=== PATIENT | female | born 1940 | race Caucasian/White ===

== ENCOUNTER 2017-10-30 18:56 | Inpatient (IN) | payer BC, MEDICAID ==
[2017-10-30] MEDS ORDERED: METHYLPREDNISOLONE PF 125MG/VIAL IVP ONE (21:30)
[2017-10-30] MEDS: HYDROCODONE/APAP 10/325 TABLET PO PRN (21:33)
[2017-10-30 21:50] LABS: HEMATOCRIT 30.9 % (35.0-47.0); HEMOGLOBIN 9.5 gm/dl (11.6-16.0); MEAN CORPUSCULAR HEMOGLOBIN 27.3 pg (27-33); MEAN CORPUSCULAR HGB CONC 30.7 g/dl (32-36); MEAN PLATELET VOLUME 10.6 fl (7.4-10.4); PLATELET COUNT 256 K/uL (130-400); RED BLOOD COUNT 3.47 M/uL (3.80-5.40); RED CELL DISTRIBUTION WIDTH 13.5 % (11.5-14.5); WHITE BLOOD COUNT W/O DIFF 6.6 K/uL (4.2-12.2)
[2017-10-30 22:05] LABS: BILIRUBIN,TOTAL 0.2 mg/dL (0.2-1.0)
[2017-10-30 22:10] LABS: ALBUMIN 3.5 g/dL (4.0-5.0)
[2017-10-30] MEDS: CEFTRIAXONE 1GM/50ML BAG 1 GM/50 ML BAG IVPB SCH (22:23)
[2017-10-30] MEDS ORDERED: AZITHROMYCIN 500 MG in 0.9 % SODIUM CHLORIDE 250ML 250 ML IVPB SCH (23:00)
[2017-10-30] MEDS ORDERED: ALBUTEROL SULFATE (0.083%) 2.5 MG/3 ML NEB INH PRN (23:14)
[2017-10-30] MEDS ORDERED: IPRATROPIUM/ALBUTEROL (0.5MG/3MG) NEB INH PRN (23:14)
[2017-10-30] MEDS ORDERED: 0.9 % SODIUM CHLORIDE 1000ML 1,000 ML IV PRN (23:14)
[2017-10-30 23:15] LABS: ANISOCYTOSIS 1+; PLATELET ESTIMATE NORMAL (NORMAL)
[2017-10-30] MEDS: GUAIFENESIN 600 MG TABCR PO SCH (23:57)
[2017-10-30] MEDS: GABAPENTIN 100 MG CAPSULE PO SCH (23:58)
[2017-10-30] MEDS: ATORVASTATIN 20 MG TABLET PO SCH (23:58)
[2017-10-30] MEDS: CLONAZEPAM 1MG TABLET PO SCH (23:58)
[2017-10-30] MEDS: CELECOXIB 100 MG CAPSULE PO SCH (23:59)
[2017-10-30] MEDS: IPRATROPIUM/ALBUTEROL (0.5MG/3MG) NEB INH PRN (23:59)
[2017-10-30] MEDS: ASPIRIN 81 MG TABEC PO SCH (23:59)
[2017-10-31] MEDS: BENZONATATE 100 MG CAPSULE PO PRN ×2 (00:28→21:43)
[2017-10-31] MEDS: HYDROCODONE/APAP 10/325 TABLET PO PRN ×5 (04:17→21:44)
[2017-10-31] MEDS: PANTOPRAZOLE SODIUM 40 MG TABLET PO SCH ×2 (06:49→17:00)
--- NOTE | 2017-10-31 07:18 | RADIOLOGY REPORT ---
EXAM: CHEST, TWO VIEWS HISTORY: COUGH FOR A FEW DAYS. TECHNIQUE: Upright PA and lateral views of the chest were obtained. Comparison: None. FINDINGS: The heart projects mildly enlarged with a left ventricular configuration. No pulmonary venous hypertension is seen. The thoracic aorta is tortuous and atherosclerotic. A moderate sized hiatal hernia is present. Mild mixed opacities are suggested within the right lung base consistent with atelectasis or mild infiltrate. Mild underlying chronic interstitial change would be difficult to exclude. The lungs and pleural spaces are otherwise clear. There are degenerative changes scattered throughout the visualized spine. Moderate dextroconvex scoliosis is present centered at the thoracolumbar junction. There are mild degenerative changes of each hip. IMPRESSION: 1. MILD CARDIOMEGALY WITHOUT PULMONARY VENOUS HYPERTENSION. 2. PATCHY MIXED OPACITIES IN THE RIGHT LUNG BASE CONSISTENT WITH ATELECTASIS OR INFILTRATE. A COMPONENT OF CHRONIC INTERSTITIAL CHANGE WOULD BE DIFFICULT TO EXCLUDE. 3. MODERATE SIZED HIATAL HERNIA. JOB NUMBER: [id number] MTDD
[2017-10-31 07:40] LABS: ALBUMIN 3.3 g/dL (4.0-5.0); ALKALINE PHOSPHATASE 95 U/L (35-104); ALT/SGPT 13 U/L (<33); AST/SGOT 18 U/L (10.0-35.0); BILIRUBIN,TOTAL < 0.20 mg/dL (0.2-1.0); BLOOD UREA NITROGEN 21 mg/dL (8-23); CREATININE 0.6 mg/dL (0.5-0.9); EST GLOMERULAR FILTRATION RATE > 60 mL/min; GLUCOSE,RANDOM 170 mg/dL (74-109); TOTAL PROTEIN 6.7 g/dL (6.6-8.7)
[2017-10-31] MEDS: ENOXAPARIN 40 MG/0.4 ML SYR SC SCH (09:20)
--- NOTE | 2017-10-31 10:25 | Rehab Evaluation ---
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 PMH - Respiratory Hx Respiratory Disorders No Comment: allergies PMH - Cardiovascular Hx Hypertension Yes Comment: lower extremity edema PMH - Neuro Hx Neurological Disorders Yes Comment: has a recurring tic PMH - GI Hx Gastrointestinal Disorders Yes Hx Gastroesophageal Reflux Yes Hx Weight Loss/Weight Gain Yes: 5 pounds recently PMH - Patient No Comment: urge incontinence especially after Bumex taken PMH - Endocrine Hx Endocrine Disorders No PMH - Psych Hx Anxiety Yes Hx Depression Yes PMH - Hematology/Oncology Hx Anemia Yes: current hgb 9.5/hct 30.9; takes Iron Social History: Detail (The patient lives in alone in apartment complex on the first level. The patient's bathroom has a tub/shower combination with a seat and hand held shower head with a grab bar over/around the toilet. The toilet is a standard height, and that patient states that it is too low. She uses a 4WW for all mobility tasks. She reports since she has been home she has had difficulty with housework and other ADL activities due to weakness) Precautions: Newman (Droplet Precautions), Fall - Time With Patient Total Time Spent With Patient (Min): 30 Treatment Procedures: Detail (PT Initial Evaluation) Subjective Information - Subjective Information Per Patient (The patient reports that since she has been home she has had difficulty with all ADL tasks and feels the weakness in her legs is the cause of it. She reports that she has tried to stay up on her HEP from her total knee replacements, but has been difficult since she has not been feeling well.) Objective Data - Pain Pain Present: No Pain Intensity: 0 - Mental Status Patient Orientation: Oriented x3 - ROM Within normal limits (The patient had no ROM limitations throughout B LEs) - Strength/Tone Not within normal limits (The patient exhibited 3+/5 strength throughout the hips, knees, and ankles in B LEs. The patient said subjective reports of weakness, as well.) - Bed Mobility Independent (The patient was able to transfer from sit to supine independently. She was independent with scooting to the middle of the bed.) - Transfers Independent (The patient was independent with sit to stand, and was independent with transferring to and from the toilet.) - Balance Balance Sitting: Good (No LOB with strength testing while sitting at the bedside.) Balance Standing: Good (No LOB with immediate standing at the bedside. No LOB with gait activities in her room.) - Sensation Intact - Gait Detail (The patient uses a 4WW for ambulation. The patient has a history of scoliosis, so the patient has an increased forward lean with gait activities. She required supervision only when ambulating from her bedside to the doorway and back (about 20 feet total). She had no LOB with short distances. Due to weakness, the patient may have increased difficulty with ambulating longer distances.) Therapy Assessment - Therapy Assessment Detail (The patient was independent with bed mobility and transfers, including transfers to and from the toilet. The patient has marked strength limitations in both LEs, which may factor into difficulty with longer ambulation tasks. She would benefit from continued therapy to address strength and endurance deficits , which are factoring into her reported limitations with ADLs. Ongoing PT after discharge from [facility] is also recommended.) Problem List - Problem List Physical Therapy Problem List: Detail (1) Decreased LE strength bilaterally 2) Decreased ability for ADL tasks 3) Unable to ambulate longer household distances ) Goals - Goals Physical Therapy Goals: 1) The patient will be able to ambulate longer household distances for increased participation in ADL activities. 2) The patient will increase LE strength to be able to ambulate longer household distances. Prognosis - Prognosis Good Plan - Plan Physical Therapy Plan: The patient will be seen 1-2x/day M-F for gait activities and LE strengthening activities. She would benefit from continued therapy to address functional mobility deficits and LE strengthening activities.
[2017-10-31] MEDS: BUMETANIDE 1 MG TABLET PO SCH (10:37)
[2017-10-31] MEDS: CELECOXIB 100 MG CAPSULE PO SCH ×2 (10:38→21:42)
[2017-10-31] MEDS: LORATADINE 10 MG TABLET PO SCH (10:39)
[2017-10-31] MEDS: DULOXETINE HCL 30 MG CAPSULE.DR PO SCH (10:39)
[2017-10-31] MEDS: POTASSIUM CHLORIDE 10 MEQ TAB PO SCH (10:40)
[2017-10-31] MEDS: FERROUS SULFATE 325 MG TAB PO SCH ×2 (10:40→21:42)
[2017-10-31] MEDS: MAGNESIUM OXIDE 400 MG TABLET PO SCH (10:41)
[2017-10-31] MEDS: FOLIC ACID 1 MG TABLET PO SCH (10:41)
[2017-10-31] MEDS: GUAIFENESIN 600 MG TABCR PO SCH ×2 (10:41→21:48)
[2017-10-31] MEDS: GABAPENTIN 100 MG CAPSULE PO SCH ×3 (10:42→21:40)
[2017-10-31] MEDS: ASCORBIC ACID 500 MG TAB PO SCH (10:42)
[2017-10-31] MEDS: LISINOPRIL 10 MG TABLET PO SCH (10:43)
[2017-10-31] MEDS: METHYLPREDNISOLONE PF 125MG/VIAL IVP SCH (10:44)
[2017-10-31] MEDS: CEFTRIAXONE 1GM/50ML BAG 1 GM/50 ML BAG IVPB SCH ×2 (10:47→21:39)
--- NOTE | 2017-10-31 12:10 | History & Physical ---
History of Present Illness - Date of Service Date of Service for History & Physical: 10/31/17 - History of Present Illness Admitting Diagnosis: Pneumonia; generalized weakness History of Present Illness: 77yo female with CC of cough and weakness. She has history of HTN, GERD, depression, chronic anemia, allergies. Patient presented to the [facility] last evening with complaints of Cough with brown phlegm, diarrhea, fatigue, lightheaded, vomiting, and fever since last friday ( 10 days). Diarrhea began yesterday, vomited x 2 days, last vomited yesterday. Is tolerating water and trying to drink as much as she can. Decreased appetite, deep cough, short of breath Chest XR showed mild cardiomegaly and right lower base opacity consistent with mild infiltrate. Ortho BP laying 132/82 P 86 standing 143/87 P 98. He oxygen saturation was 97% on room air but was very wheezy on exam. Improved with duoneb breathing treatment. Due to her severe weakness and unsteadiness she was admitted for IV abx, PT/OT consult. 10/31/17- Patient is somewhat improved today. She says the nausea/vomiting have resolved and she is tolerating food for the first time in a few days. She is no longer having diarrhea. She does continue to report shortness of breath, wheezing, cough and weakness. She has been at least a 1x person assist to ambulate to the bathroom and patient reports feeling unsteady on her feet. She lives alone in an apartment and currently does not have family available to help her at home. Travel Screening - Travel/Exposure Within Last 30 Days Have you traveled within the last 30 days?: No - Travel/Exposure Within Last Year Have you traveled outside the [place] in the last year?: No - Additonal Travel Details Have you been exposed to anyone with a communicable illness?: No - Travel Symptoms Symptom Screening: Weakness, Diarrhea, Vomiting, Lack of Appetite Review of Systems Constitutional: Reports: Weakness (generalized). Denies: Chills, Fever ENT: Denies: Congestion Respiratory: Reports: Cough, Dyspnea, Wheezes. Denies: Stridor Cardiovascular: Denies: Arrhythmia, Chest pain Endocrine: Reports: Fatigue Gastrointestinal: Denies: Abdominal pain, Diarrhea, Nausea, Vomiting Neurological: Denies: Confusion, Headache Past Medical History - SOCIAL HISTORY Smoking Status: Never smoker Alcohol Use: None Drug Use: None - RESPIRATORY Hx Respiratory Disorders: No Comment:: allergies - CARDIOVASCULAR Hx Hypertension: Yes Comment:: lower extremity edema - NEURO Hx Neuro Disorders: Yes Comment:: has a recurring tic - GI Hx GI Disorders: Yes Hx Reflux: Yes Hx Wt Loss/Wt Gain: Yes (5 pounds recently) - Comment:: urge incontinence especially after Bumex taken - ENDOCRINE Hx Endocrine Disorders: No - PSYCH Hx Anxiety: Yes Hx Depression: Yes - HEMATOLOGY/ONCOLOGY Hx Anemia: Yes (current hgb 9.5/hct 30.9; takes Iron) Family Medical History Any Significant Family History?: No H&P Meds/Allergies - Allergies Allergies: Allergies Allergy/AdvReac Type Severity Reaction Status Date / Time No Known Drug Allergies Allergy Unverified 10/30/17 18:29 - Home Medications Home Medications Medication Instructions Recorded Confirmed Last Taken Potassium Chloride [Klor-Con 10] 10 meq PO DAILY 10/30/17 10/30/17 10/30/17 08: 00 - Active Medications Active Medications: Current Medications Hydrocodone Bitart/Acetaminophen ([place] 10mg/325mg) 1 each PO Q4H PRN PRN Reason: Pain - General Last Admin: 10/31/17 08:24 Dose: 1 each Albuterol Sulfate () 2.5 mg INH RESP.Q2H PRN PRN Reason: DIFFICULTY IN BREATHING Albuterol/Ipratropium (Duoneb) 3 ml INH RESP.Q4H PRN PRN Reason: Wheezing Last Admin: 10/30/17 23:59 Dose: 3 ml Ascorbic Acid (Vitamin C) 1,000 mg PO DAILY COUNTS INCLUDE 234 BEDS AT THE [facility] Last Admin: 10/31/17 10:42 Dose: 1,000 mg Aspirin (Ecotrin (Ec)) 81 mg PO QHS COUNTS INCLUDE 234 BEDS AT THE [facility] Last Admin: 10/30/17 23:59 Dose: 81 mg Atorvastatin Calcium (Lipitor) 10 mg PO QHS COUNTS INCLUDE 234 BEDS AT THE [facility] Last Admin: 10/30/17 23:58 Dose: 10 mg Benzonatate (Tessalon) 200 mg PO TID PRN PRN Reason: COUGH Last Admin: 10/31/17 00:28 Dose: 200 mg Bumetanide (Bumex) 1 mg PO DAILY COUNTS INCLUDE 234 BEDS AT THE [facility] Last Admin: 10/31/17 10:37 Dose: 1 mg Celecoxib (Celebrex) 200 mg PO BID COUNTS INCLUDE 234 BEDS AT THE [facility] Last Admin: 10/31/17 10:38 Dose: 200 mg Clonazepam (Klonopin) 2 mg PO QHS COUNTS INCLUDE 234 BEDS AT THE [facility] Last Admin: 10/30/17 23:58 Dose: 2 mg Duloxetine HCl (Cymbalta) 60 mg PO DAILY COUNTS INCLUDE 234 BEDS AT THE [facility] Last Admin: 10/31/17 10:39 Dose: 60 mg Enoxaparin Sodium (Lovenox) 40 mg SC DAILY COUNTS INCLUDE 234 BEDS AT THE [facility] Last Admin: 10/31/17 09:20 Dose: 40 mg Ferrous Sulfate (Iron) 325 mg PO BID COUNTS INCLUDE 234 BEDS AT THE [facility] Last Admin: 10/31/17 10:40 Dose: 325 mg Folic Acid () 1 mg PO DAILY COUNTS INCLUDE 234 BEDS AT THE [facility] Last Admin: 10/31/17 10:41 Dose: 1 mg Gabapentin (Neurontin) 400 mg PO TID COUNTS INCLUDE 234 BEDS AT THE [facility] Last Admin: 10/31/17 10:42 Dose: 400 mg Guaifenesin (Mucinex) 600 mg PO BID COUNTS INCLUDE 234 BEDS AT THE [facility] Last Admin: 10/31/17 10:41 Dose: 600 mg Azithromycin 500 mg/ Sodium (Chloride) 250 mls @ 250 mls/hr IVPB Q24H COUNTS INCLUDE 234 BEDS AT THE [facility] Stop: 11/04/17 23:01 Last Infusion: 10/31/17 00:10 Dose: Infused CEFTRIAXONE 1GM/50ML BAG (Ceftriaxone 1 Gm-D5w Bag) 1 gm in 50 mls @ 100 mls/ hr IVPB Q12H COUNTS INCLUDE 234 BEDS AT THE [facility] Last Admin: 10/31/17 10:47 Dose: 100 mls/hr Lisinopril (Zestril) 10 mg PO DAILY COUNTS INCLUDE 234 BEDS AT THE [facility] Last Admin: 10/31/17 10:43 Dose: 10 mg Loratadine (Claritin) 10 mg PO DAILY COUNTS INCLUDE 234 BEDS AT THE [facility] Last Admin: 10/31/17 10:39 Dose: 10 mg Magnesium Oxide (Mag Ox) 400 mg PO DAILY COUNTS INCLUDE 234 BEDS AT THE [facility] Last Admin: 10/31/17 10:41 Dose: 400 mg Methylprednisolone Sodium Succinate (Solu-Medrol) 60 mg IVP DAILY COUNTS INCLUDE 234 BEDS AT THE [facility] Last Admin: 10/31/17 10:44 Dose: 60 mg Pantoprazole Sodium (Protonix) 40 mg PO BIDAC COUNTS INCLUDE 234 BEDS AT THE [facility] Last Admin: 10/31/17 06:49 Dose: 40 mg Potassium Chloride (Klor-Con) 10 meq PO DAILY COUNTS INCLUDE 234 BEDS AT THE [facility] Last Admin: 10/31/17 10:40 Dose: 10 meq Physical Exam - Vital Signs Vital Signs: Vital Signs - Last 24 Hrs Temp Pulse Pulse Resp BP BP Pulse Ox 10/31/17 10:39 68 20 99 10/31/17 04:20 97.5 F L 62 16 100/46 93 L 10/30/17 23:59 80 18 95 10/30/17 20:45 98.0 F 89 18 136/81 95 - General General Appearance: Alert, Oriented x3, Cooperative, No acute distress Limitations: Other (motor tics) - Head Head exam: Normal inspection Head exam detail: negative: Abrasion, Contusion - ENT ENT exam: Normal exam, Mucous membranes moist, Normal external ear exam, Normal orophraynx, TM's normal bilaterally, Other (poor dentition) - Neck Neck exam: Normal inspection, Full ROM. negative: Tenderness - Respiratory Respiratory exam: Prolonged expiratory, Wheezes (diffuse). negative: Respiratory distress - Cardiovascular Cardiovascular Exam: Regular rate, Normal rhythm, Normal heart sounds - GI/Abdominal GI/Abdominal exam: Soft, Normal bowel sounds. negative: Tenderness - Neurological Neurological exam: Alert, Normal gait, Oriented X3, Reflexes normal - Psychiatric Psychiatric exam: Normal affect, Normal mood - Skin Skin exam: Dry, Intact, Normal color, Warm Results - Labs Result Diagrams: 10/30/17 21:40 10/31/17 06:07 Labs Last 24 Hours: Laboratory Results - last 24 hr 10/30/17 10/30/17 10/31/17 21:40 21:40 06:07 WBC 6.6 RBC 3.47 L Hgb 9.5 L Hct 30.9 L MCV 89.0 MCH 27.3 MCHC 30.7 L RDW 13.5 Plt Count 256 MPV 10.6 H Neutrophils % 72.0 Eosinophils % Not Reportable Basophils % Not Reportable Lymphocytes 17.0 Monocytes 9.0 Platelet Estimate Normal Anisocytosis 1+ Eosinophil Count 2.0 Sodium 133 L 138 Potassium 4.4 4.5 Chloride 93 L 100 Carbon Dioxide 27.0 27.0 Anion Gap 13.0 11.0 BUN 24 H 21 Creatinine 1.0 H 0.6 Estimated GFR 57 > 60 Random Glucose 170 H 170 H Calcium 9.3 9.2 Total Bilirubin 0.20 < 0.20 L AST 20 18 ALT 13 13 Alkaline Phosphatase 105 H 95 Total Protein 7.0 6.7 Albumin 3.5 L 3.3 L Globulin 3.5 3.4 Albumin/Globulin Ratio 1.0 L 1.0 L - Imaging and Cardiology Chest x-ray Status: Report reviewed (right lower opacity ) VTE H&P Assessment - Risk for VTE Risk for VTE: Yes Risk Level: High Risk Assessment Date: 10/31/17 Risk Assessment Time: 16:25 VTE Orders Placed or Will Be Placed: Yes Plan - Inpatient Certification Inpatient Certification: Admit to inpatient care: Based on my medical assessment, after consideration of patient's risk factors (age, co-morbidities and patient presenting symptoms and acuity), I expect that this patient will remain in the hospital greater than or equal to two midnights and that the services needed warrant inpatient care because: Patient Risk Factors: [age, pneumonia, weakness, difficulty ambulating] Estimated length of stay: [48-72H] The patient may reasonably be expected to be discharged or transferred to a hospital within 96 hours after admission to [facility]. Services needed: [IV abx, respiratory therapy, PT/OT, SW] Post hospital care (if known): [] I certify that my determination is in accordance with my understanding of Medicare requirements for reasonable and necessary inpatient services. 10/31/17 12:08 - Detailed Diagnosis and Plan (1) Right lower lobe pneumonia Current Visit: Yes Status: Acute Qualifiers: Pneumonia type: due to unspecified organism Qualified Code(s): J18.1 - Lobar pneumonia, unspecified organism Base Code: J18.1 - LOBAR PNEUMONIA, UNSPECIFIED ORGANISM Comment: 10/31/17- CXR showing opacity in the right lower base. Blood, sputum cultures pending. Legionella antigen pending. WBC count wnl and patient is afebrile. -continue empiric treatment for CAP with rocephin 1gm q12H and azithromycin 500mg po daily -duoneb q4H prn with albuterol q2H prn BARBARA -received 125mg of solumedrol yesterday. will continue 60mg IV daily with persistent wheezing -mucinex 600mg po bid -vitals q8H -labs qam (2) Generalized weakness Current Visit: Yes Status: Acute Base Code: R53.1 - WEAKNESS Comment: 10/31- seems to be acute on chronic weakness, likely exacerbated by pneumonia. Still 1 person assist for ambulation. she is very high fall risk. -PT/OT consult ordered -JERE has seen patient and will plan to place home health referral vs JAMIE referral based on therapy's recommendations. (3) Full code status Current Visit: Yes Status: Acute Base Code: Z78.9 - OTHER SPECIFIED HEALTH STATUS Comment: 10/31/17- patient is full code (4) DVT prophylaxis Current Visit: Yes Status: Acute Base Code: [id number] - Comment: 10/2017- patient is high risk for dVT with age and restricted mobility -lovenox 40mg sq daily - Disposition 10/31/17- anticipate 48-72H inpatient stay followed by either discharge to subacute rehab vs home health therapy
[2017-10-31] MEDS: IPRATROPIUM/ALBUTEROL (0.5MG/3MG) NEB INH PRN ×2 (12:54→19:51)
--- NOTE | 2017-10-31 17:07 | Rehab Evaluation ---
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 PMH - Respiratory Hx Respiratory Disorders No Comment: allergies PMH - Cardiovascular Hx Hypertension Yes Comment: lower extremity edema PMH - Neuro Hx Neurological Disorders Yes Comment: has a recurring tic PMH - GI Hx Gastrointestinal Disorders Yes Hx Gastroesophageal Reflux Yes Hx Weight Loss/Weight Gain Yes: 5 pounds recently PMH - Patient No Comment: urge incontinence especially after Bumex taken PMH - Endocrine Hx Endocrine Disorders No PMH - Psych Hx Anxiety Yes Hx Depression Yes PMH - Hematology/Oncology Hx Anemia Yes: current hgb 9.5/hct 30.9; takes Iron Premorbid Status: Detail (Per pt. report, pt. had Dl. TKA sx (1 in Feb, 1 in Apr) and went to [facility] ([place]), but was unable to stay as long as she needed to recover d/t insurance coverage. Pt. feels as though she never fully recovered from this. Approx. 2-3 weeks ago, pt. became ill and was having significant difficulty with ADL's, which became worse and she sought medical attn. Prior to knee sx, Pt. was able to complete all self-care (i.e. bathing, dressing, cooking , cleaning) independently with the exception that her daughter brings her groceries 1x/week since pt. cannot drive. After her sx, pt.'s daughter also assisted with cleaning. Please see ADL section for current status. Pt. reported hx of biceps and rotator cuff tear in LUE "years ago", and has had pain ever since but did not have any therapy or treatment. Also reported hx of RUE shoulder or humerus injury (but couldn't recall what the injury was), with residual pain ever since.) Social History: Detail (The patient lives in alone in apartment complex on the first level. The patient's bathroom has a tub/shower combination with a seat and hand held shower head with a grab bar over/around the toilet. The toilet is a standard height, and that patient states that it is too low. She uses a 4WW for all mobility tasks. Pt. is unable to drive and does not have other resources of transportation. Her daughter visits weekly on Saturdays (works time clock inspector). Pt. reported she does not feel safe interacting socially with the people in her apartment complex, so she keeps to herself and primarily watches TV in her apartment. Pt. stated she is frustrated and depressed with her inability to get out of her apartment to socialize and be involved with other activities.) Precautions: [place] (Droplet Precautions), Fall - Time With Patient Total Time Spent With Patient (Min): 45 Treatment Procedures: Detail (Pt. was left with call light and bed-side tray within reach, water provided, and bed alarm on.) Objective Data - Pain Pain Present: Yes (BUE with movement, and muscle achiness/soreness in general.) - Mental Status Patient Orientation: Oriented x3 (Pt. required some additional cognitive processing time when answering questions or following directions.) - Visual Perception Appears within normal limits for therapeutic activities - ROM Not within normal limits (BUE shd flex approx. 90 degrees, abd 80. BUE elbow flex, ext, sup, pro, wrist ext, flex WFL.) - Strength/Tone Not within normal limits (BUE strength is poor, including associate professor of biology strength (i.e. squeezing fingers). 3+/5 shd flex, abd, biceps, triceps, wrist flex, and ext. Pt. reported BUE pain (more severe in L) during most MMT with minimal resistance applied.) - Coordination Deficit (Difficulty putting thumb to each finger. Pt. reports severe difficulty with many FMC tasks, such as zippers, and is unable to use buttons.) - Bed Mobility Independent (supine to seated EOB Ind. without use of bed rail.) - Transfers Independent (SBA sit<>stand EOB to walker.) - Balance Balance Sitting: Good Balance Standing: Fair (no LOB, but was shaky/weak.) - Sensation Deficit (Light touch NOT intact L small finger and ring finger. Light touch intact all other fingertips bilaterally, but pt. reports constant numbness in entire L hand.) - ADL's/IADL's Detail (Pt. was too exhausted (stated has no energy) to assess ADL's at this time. Pt. reported she hasn't been able to do any self-care activities at home due to lack of energy and weakness, and is very concerned. Pt. has not been cooking, and stated she was unable to eat (was frequently vomiting), but did not have energy to cook or eat either. Pt. stated she feels unsafe taking a shower (even while seated), and is very fearful of falling and injurying her bilateral knee replacements. Pt. values cleanliness, especially caring for her hair. Pt. was able to reach feet to don socks while laying in bed. Pt. stated she has a parachute panel joiner at home, but doesn't use it. Pt. stated she has difficulty transitioning on/off standard height toilet at home. Educ. was provided on riser and 3-in-1 commode for options. Pt. stated she tried a riser, but it slid and fell off the toilet, causing her to fall.) Therapy Assessment - Therapy Assessment Detail (Pt. would benefit from skilled OT services during in-patient hospital stay, and potentially after hospital d/c in addition, to maximize safety and independence with ADL's, increase BUE strength and ROM, and improve quality of life. Pt. would benefit from education in community resources, such as transportation options, meals on wheels, and/or community activities. Message was left with case packer/social work. Pt. is motivated to regain independence with self care activities (i.e. bathing, dressing, and meal prep).) Problem List - Problem List Physical Therapy Problem List: Detail (1) Decreased LE strength bilaterally 2) Decreased ability for ADL tasks 3) Unable to ambulate longer household distances ) Occupational Therapy Problem List: Detail (Poor BUE strength and AROM, impaired fine motor coordination, impaired sensation L hand, decreased ind. with ADL's, significantly decreased activity tolerance/endurance.) Goals - Goals Physical Therapy Goals: 1) The patient will be able to ambulate longer household distances for increased participation in ADL activities. 2) The patient will increase LE strength to be able to ambulate longer household distances. Occupational Therapy Goals: 1) Pt. will shower with modified independence. 2) Pt. will improve activity tolerance to complete typical morning ADL routine within a reasonable timeframe (i.e. 1 hour or less). 3) Improve BUE strength to 4-/5. 4) Demo. awareness of adaptive strategies and/or equipment to improve functioning (i.e. d/t impaired FMC, numbness) if needed. Prognosis - Prognosis Good (with pt. participation) Plan - Plan Physical Therapy Plan: The patient will be seen 1-2x/day M-F for gait activities and LE strengthening activities. She would benefit from continued therapy to address functional mobility deficits and LE strengthening activities. Occupational Therapy Plan: Provide in patient OT services 2-4x/week M-F during typical business hours during patient's hospital stay.
[2017-10-31] MEDS: ASPIRIN 81 MG TABEC PO SCH (21:42)
[2017-10-31] MEDS: CLONAZEPAM 1MG TABLET PO SCH (21:45)
[2017-10-31] MEDS: AZITHROMYCIN 500 MG TABLET PO SCH (21:47)
[2017-10-31] MEDS: ATORVASTATIN 20 MG TABLET PO SCH (21:47)
[2017-11-01] MEDS ORDERED: DIPHENHYDRAMINE HCL 25 MG CAPSULE PO ONE ×2 (00:16→22:00)
[2017-11-01] MEDS: HYDROCODONE/APAP 10/325 TABLET PO PRN ×5 (05:10→23:47)
[2017-11-01] MEDS ORDERED: SODIUM CHLORIDE 7% FOR INHALATION 4 ML NEB INH ONE (07:46)
[2017-11-01] MEDS: IPRATROPIUM/ALBUTEROL (0.5MG/3MG) NEB INH PRN (08:02)
[2017-11-01] MEDS: PANTOPRAZOLE SODIUM 40 MG TABLET PO SCH ×2 (08:55→15:41)
[2017-11-01] MEDS: GABAPENTIN 100 MG CAPSULE PO SCH ×3 (09:51→21:26)
[2017-11-01] MEDS: GUAIFENESIN 600 MG TABCR PO SCH ×2 (09:51→21:29)
[2017-11-01] MEDS: ENOXAPARIN 40 MG/0.4 ML SYR SC SCH (09:52)
[2017-11-01] MEDS: BUMETANIDE 1 MG TABLET PO SCH (09:52)
[2017-11-01] MEDS: LISINOPRIL 10 MG TABLET PO SCH (09:52)
[2017-11-01] MEDS: ASCORBIC ACID 500 MG TAB PO SCH (09:52)
[2017-11-01] MEDS: POTASSIUM CHLORIDE 10 MEQ TAB PO SCH (09:52)
[2017-11-01] MEDS: BENZONATATE 100 MG CAPSULE PO PRN ×2 (09:52→21:32)
[2017-11-01] MEDS: FOLIC ACID 1 MG TABLET PO SCH (09:52)
[2017-11-01] MEDS: LORATADINE 10 MG TABLET PO SCH (09:52)
[2017-11-01] MEDS: MAGNESIUM OXIDE 400 MG TABLET PO SCH (09:52)
[2017-11-01] MEDS: FERROUS SULFATE 325 MG TAB PO SCH ×2 (09:52→21:29)
[2017-11-01] MEDS: CELECOXIB 100 MG CAPSULE PO SCH ×2 (09:53→21:26)
[2017-11-01] MEDS: DULOXETINE HCL 30 MG CAPSULE.DR PO SCH (09:53)
[2017-11-01] MEDS: METHYLPREDNISOLONE PF 125MG/VIAL IVP SCH (09:54)
[2017-11-01] MEDS: CEFTRIAXONE 1GM/50ML BAG 1 GM/50 ML BAG IVPB SCH ×2 (09:56→21:38)
[2017-11-01] MEDS ORDERED: ZINC OXIDE 28.35 GM TUBE TOP PRN (13:40)
[2017-11-01] MEDS: LOPERAMIDE 2 MG CAPSULE PO PRN (15:42)
[2017-11-01] MEDS ORDERED: CALCIUM CARBONATE 500 MG TAB.CHEW PO PRN (19:32)
[2017-11-01] MEDS ORDERED: VOLTAREN TOP PRN (20:02)
[2017-11-01] MEDS: CALCIUM CARBONATE 500 MG TAB.CHEW PO PRN (20:13)
[2017-11-01] MEDS: AZITHROMYCIN 500 MG TABLET PO SCH (21:24)
[2017-11-01] MEDS: CLONAZEPAM 1MG TABLET PO SCH (21:29)
[2017-11-01] MEDS: ATORVASTATIN 20 MG TABLET PO SCH (21:29)
[2017-11-01] MEDS: ASPIRIN 81 MG TABEC PO SCH (21:30)
[2017-11-02] MEDS: PANTOPRAZOLE SODIUM 40 MG TABLET PO SCH ×2 (08:26→16:12)
[2017-11-02] MEDS: HYDROCODONE/APAP 10/325 TABLET PO PRN ×3 (08:27→22:17)
[2017-11-02] MEDS: FOLIC ACID 1 MG TABLET PO SCH (10:03)
[2017-11-02] MEDS: POTASSIUM CHLORIDE 10 MEQ TAB PO SCH (10:04)
[2017-11-02] MEDS: MAGNESIUM OXIDE 400 MG TABLET PO SCH (10:04)
[2017-11-02] MEDS: CELECOXIB 100 MG CAPSULE PO SCH ×2 (10:04→22:15)
[2017-11-02] MEDS: ASCORBIC ACID 500 MG TAB PO SCH (10:04)
[2017-11-02] MEDS: LISINOPRIL 10 MG TABLET PO SCH (10:04)
[2017-11-02] MEDS: LORATADINE 10 MG TABLET PO SCH (10:04)
[2017-11-02] MEDS: ENOXAPARIN 40 MG/0.4 ML SYR SC SCH (10:05)
[2017-11-02] MEDS: FERROUS SULFATE 325 MG TAB PO SCH ×2 (10:05→22:13)
[2017-11-02] MEDS: BUMETANIDE 1 MG TABLET PO SCH (10:05)
[2017-11-02] MEDS: GUAIFENESIN 600 MG TABCR PO SCH ×2 (10:05→22:16)
[2017-11-02] MEDS: DULOXETINE HCL 30 MG CAPSULE.DR PO SCH (10:05)
[2017-11-02] MEDS: GABAPENTIN 100 MG CAPSULE PO SCH ×3 (10:05→22:13)
[2017-11-02] MEDS: METHYLPREDNISOLONE PF 125MG/VIAL IVP SCH (10:06)
[2017-11-02] MEDS: CEFTRIAXONE 1GM/50ML BAG 1 GM/50 ML BAG IVPB SCH ×2 (10:11→22:12)
[2017-11-02] MEDS: IPRATROPIUM/ALBUTEROL (0.5MG/3MG) NEB INH PRN (11:14)
[2017-11-02] MEDS: LOPERAMIDE 2 MG CAPSULE PO PRN (13:00)
[2017-11-02] MEDS: IPRATROPIUM/ALBUTEROL (0.5MG/3MG) NEB INH SCH ×3 (15:37→22:08)
[2017-11-02] MEDS ORDERED: PREDNISONE 20 MG TAB PO SCH (17:30)
[2017-11-02] MEDS: CALCIUM CARBONATE 500 MG TAB.CHEW PO PRN (17:36)
[2017-11-02] MEDS ORDERED: DIPHENHYDRAMINE HCL 25 MG CAPSULE PO PRN (20:29)
[2017-11-02] MEDS: ATORVASTATIN 20 MG TABLET PO SCH (22:13)
[2017-11-02] MEDS: ASPIRIN 81 MG TABEC PO SCH (22:16)
[2017-11-02] MEDS: CLONAZEPAM 1MG TABLET PO SCH (22:16)
[2017-11-02] MEDS: AZITHROMYCIN 500 MG TABLET PO SCH (22:16)
[2017-11-03] MEDS: IPRATROPIUM/ALBUTEROL (0.5MG/3MG) NEB INH SCH (06:00)
[2017-11-03] MEDS: HYDROCODONE/APAP 10/325 TABLET PO PRN (06:03)
[2017-11-03] MEDS: PANTOPRAZOLE SODIUM 40 MG TABLET PO SCH (06:04)
[2017-11-03] MEDS ORDERED: PREDNISONE 20 MG TAB PO ONE (07:24)
--- NOTE | 2017-11-03 07:33 | Discharge Note ---
VTE H&P Assessment - Risk for VTE Risk for VTE: Yes Risk Level: High Risk Assessment Date: 10/31/17 Risk Assessment Time: 16:25 VTE Orders Placed or Will Be Placed: Yes Discharge Medications - Discharge Medications Prescriptions: Albuterol Sulfate [Ventolin Hfa] 2 puff INH RESP.Q4H.WA #1 inhaler Azithromycin 250 mg PO DAILY #6 tablet Prednisone [Prednisone 10Mg] 10 mg PO ASDIR #30 tab Home Medications: Ambulatory Orders Ascorbic Acid [Vitamin C] 1,000 mg PO DAILY tab 10/30/17 [Last Taken 10/30/17 08:00 1000 MG] Aspirin 81 mg PO QD tab.chew 10/30/17 [Last Taken 10/29/17 20:00 81 MG] Atorvastatin Calcium 10 mg PO QHS tab 10/30/17 [Last Taken 10/29/17 20:00 10 MG ] Bumetanide [Bumex] 1 mg PO DAILY tab 10/30/17 [Last Taken 10/30/17 08:00 1 MG] Calcium Carbonate/Vitamin D3 [Calcium 500 + Vit D Caplet] 1 each PO DAILY tab 10/30/17 [Last Taken 10/30/17 08:00 500 MG/200 UNITS] Celecoxib 200 mg PO BID cap 10/30/17 [Last Taken 10/30/17 08:00 200 MG] Clonazepam 2 mg PO QHS tab.rapdis 10/30/17 [Last Taken 10/29/17 20:00] Diclofenac Sodium 100 gm TP BID 10/30/17 [Last Taken 10/30/17 08:00 100 GM] Duloxetine HCl 60 mg PO DAILY cap 10/30/17 [Last Taken 10/30/17 08:00 60 MG] Ferrous Sulfate 325 mg PO BID tab 10/30/17 [Last Taken 10/30/17 08:00 325 MG] Folic Acid 0.8 mg PO DAILY tab 10/30/17 [Last Taken 10/30/17 08:00] Gabapentin 400 mg PO TID cap 10/30/17 [Last Taken 10/30/17 14:00 400 MG] Hydrocodone/Acetaminophen [Hydrocodone-Acetamin 10-325 mg] 10 - 325 mg PO Q4HR PRN tab 10/30/17 [Last Taken 10/30/17 12:00 10-325] Hydrocortisone 1.5 gm TP BID PRN 10/30/17 [Last Taken 10/30/17 15:00 1.5] Lisinopril 10 mg PO DAILY tab 10/30/17 [Last Taken 10/30/17 08:00 10 MG] Loratadine 10 mg PO DAILY tab.rapdis 10/30/17 [Last Taken 10/30/17 08:00 10 MG] Magnesium Oxide [Mag-Oxide] 200 mg PO DAILY tab 10/30/17 [Last Taken 10/30/17 08:00 200] Pantoprazole Sodium [Protonix] 40 mg PO BIDAC tab.dr 10/30/17 [Last Taken 10/30 08:00 40 MG] Potassium Chloride [Klor-Con 10] 10 meq PO DAILY 10/30/17 [Last Taken 10/30/17 08:00] Sennosides/Docusate Sodium [Senna S Tablet] 1 each PO BID PRN tab 10/30/17 [ Last Taken Unknown] Tramadol HCl 50 mg PO Q4H PRN tab 10/30/17 [Last Taken 10/30/17 14:00 50 MG] Albuterol Sulfate [Ventolin Hfa] 2 puff INH RESP.Q4H.WA #1 inhaler 11/03/17 [ Last Taken Unknown] Azithromycin 250 mg PO DAILY #6 tablet 11/03/17 [Last Taken Unknown] Prednisone [Prednisone 10Mg] 10 mg PO ASDIR #30 tab 11/03/17 [Last Taken Unknown ] Discharge Note - Date Date of Discharge Note: 11/03/17 Condition: (1) Good Additional Instructions: follow up with Dr. FLORINA Aviles in 2 to 7 days. AZITHROMYCIN 250 MG DAILY FOR 6 DAYS PREDNISONE TAPER FROM 40 mg (10 mg Pills) 4 pills daily for 3 days than 3 pills daily times 3 days than 2 pills daily times 3 days than one a day for three days ventolin inhaler 2 puffs every 4 hours continue home meds Referrals: FLORINA AVILES [Primary Care Provider] -
[2017-11-03] MEDS: CALCIUM CARBONATE 500 MG TAB.CHEW PO PRN (07:54)
[2017-11-03] MEDS: CELECOXIB 100 MG CAPSULE PO SCH (09:20)
[2017-11-03] MEDS: BUMETANIDE 1 MG TABLET PO SCH (09:20)
[2017-11-03] MEDS: LORATADINE 10 MG TABLET PO SCH (09:21)
[2017-11-03] MEDS: DULOXETINE HCL 30 MG CAPSULE.DR PO SCH (09:21)
[2017-11-03] MEDS: FOLIC ACID 1 MG TABLET PO SCH (09:22)
[2017-11-03] MEDS: POTASSIUM CHLORIDE 10 MEQ TAB PO SCH (09:22)
[2017-11-03] MEDS: ENOXAPARIN 40 MG/0.4 ML SYR SC SCH (09:22)
[2017-11-03] MEDS: FERROUS SULFATE 325 MG TAB PO SCH (09:22)
[2017-11-03] MEDS: GABAPENTIN 100 MG CAPSULE PO SCH (09:23)
[2017-11-03] MEDS: MAGNESIUM OXIDE 400 MG TABLET PO SCH (09:23)
[2017-11-03] MEDS: GUAIFENESIN 600 MG TABCR PO SCH (09:23)
[2017-11-03] MEDS: ASCORBIC ACID 500 MG TAB PO SCH (09:24)
[2017-11-03] MEDS: LISINOPRIL 10 MG TABLET PO SCH (09:24)
[2017-11-03] MEDS: CEFTRIAXONE 1GM/50ML BAG 1 GM/50 ML BAG IVPB SCH (09:25)
[2017-11-03] MEDS ORDERED: ALBUTEROL HFA 8 GM INHALER INH SCH (10:00)
--- NOTE | 2017-11-03 12:21 | Discharge Summary ---
DATE: 11/03/2017 at 7:37 a.m. DISCHARGE DIAGNOSES: 1. Right lower lobe pneumonia. 2. History of hypercholesterolemia. 3. History of chronic pain, low back pain and on narcotics. 4. History of osteoarthritis. 5. History of gastroesophageal reflux disease. 6. History of Tourette syndrome. 7. History of anxiety and depression. 8. History of anemia and takes iron. ATTENDING PHYSICIAN: Chaitanya Kinney DO REASON FOR HOSPITALIZATION: This 77-year-old female presented to the [facility] with cough for the last 2 days, coughing up brown sputum and a fever on and off for 10 days. She also had diarrhea and vomiting x2. Chest x-ray showing a right lower lobe infiltrate and she was admitted to the hospital for treatment of pneumonia with IV antibiotics. SIGNIFICANT FINDINGS: The chest x-ray showed mild cardiomegaly without pulmonary venous hypertension, patchy mixed opacity in the right lung base consistent with atelectasis or infiltrate, component of chronic interstitial change would be difficult to exclude, moderate size hiatal hernia. WBC 6600, hemoglobin 9.5, segs 72, lymphs 17. Her last set of electrolytes with potassium 4.5, sodium 138, chloride 100, BUN 21, creatinine 0.6. Her liver enzymes are normal. She had a C difficile toxin which was not detected. She also had legionella urine test which was negative and blood cultures which were negative. THERAPY PROVIDED: She was placed on IV Rocephin 1 g q.12 h. and azithromycin 500 mg daily and breathing treatments with DuoNeb. She was switched over to a Ventolin inhaler on discharge and oral prednisone. She also had IV Solu-Medrol initially, switched over to oral prednisone. CONDITION ON DISCHARGE: Improved but not totally better because of her cough and congestion. She would rather stay in the hospital; however, at this point it is safe to go home with outpatient therapy. DISCHARGE INSTRUCTIONS: Follow up with Dr. Matt Aviles in 2-7 days. New medications are Ventolin inhaler 2 puffs q.4 h., Z-Zack 1 a day until gone. She has already had the initial 500 mg dose for 5 days. Prednisone taper starting at 40 mg, 10 mg pills, 4 pills a day for 3 days, then 3 pills a day for 3 days, 2 pills a day for 3 days, then 1 pill a day for 3 days. We will continue her home medications of aspirin 81 mg daily, atorvastatin 10 mg at night, Bumex 1 mg a day, calcium with vitamin D 1 a day, Celexa 200 mg twice a day, Klonopin 2 mg at night, diclofenac 1% gel apply twice a day, Cymbalta 60 mg daily, ferrous sulfate 1 b.i.d., folic acid 800 mg daily, Neurontin 800 mg 3 times a day, Tums p.r.n., [place] 10 mg 1 tablet every 4 hours p.r.n., lisinopril 10 mg daily, Claritin 10 mg daily, Mag-Ox 400 mg a day, Protonix 40 mg b.i.d., potassium chloride 10 mEq daily, vitamin C 1000 mg a day, senna p.r.n. CC: Dr. Matt CONTRERAS
== END 2017-11-03 10:45 | disposition home health service (06) | DRG 948 ==
LOC: RAD 18:56 → UNDOADMIN 20:25 → MEDSURG 20:25
PROVIDERS: ADMIT Emergency Medicine; ATTEND Emergency Medicine
DX: R53.1 Weakness (principal); R05 Cough; I10 Essential (primary) hypertension; E78.00 Pure hypercholesterolemia, unspecified; K21.9 Gastro-esophageal reflux disease without esophagitis; D53.9 Nutritional anemia, unspecified; R19.7 Diarrhea, unspecified; R11.10 Vomiting, unspecified; F41.8 Other specified anxiety disorders; F95.2 Tourette's disorder
CPT/HCPCS: 71046; 80053; 85027; 87040; 87070; 87449; 87493; 94640; 94664; 97166; 99223; 99233; 99239; J0456; J0696; J1650; J2930; J7050; J7512

== ENCOUNTER 2017-12-16 12:40 | Observation (INO) | payer BC, MEDICAID ==
[2017-12-16] MEDS ORDERED: 0.9 % SODIUM CHLORIDE 1,000 ML BAG IV ONE (13:55)
[2017-12-16] MEDS ORDERED: ONDANSETRON HCL IV 4 MG/2 ML VIAL IVP ONE (14:00)
[2017-12-16 14:09] LABS: BASO % 0.5 % (0-6); EOS % 0.1 % (0-6); HEMATOCRIT 40.3 % (35.0-47.0); HEMOGLOBIN 12.9 gm/dl (11.6-16.0); LYMPH % 7.1 % (16-45); MEAN CELL VOLUME 88.6 fl (81-97); MEAN CORPUSCULAR HEMOGLOBIN 28.4 pg (27-33); MONO % 4.4 % (0-9); PLATELET COUNT 259 K/uL (130-400); RED BLOOD COUNT 4.55 M/uL (3.80-5.40)
[2017-12-16 14:19] LABS: BLOOD UREA NITROGEN 8 mg/dL (8-23); CREATININE 0.6 mg/dL (0.5-0.9); EST GLOMERULAR FILTRATION RATE > 60 mL/min
[2017-12-16 14:20] LABS: TOTAL PROTEIN 7.8 g/dL (6.6-8.7)
[2017-12-16 14:22] LABS: GLUCOSE,RANDOM 134 mg/dL (74-109)
[2017-12-16 14:25] LABS: ALB/GLOB RATIO 1.6 (1.1-1.8); ALBUMIN 4.8 g/dL (4.0-5.0); ALKALINE PHOSPHATASE 141 U/L (35-104); ALT/SGPT 14 U/L (<33); AST/SGOT 23 U/L (10.0-35.0); LIPASE 7 U/L (13-60)
[2017-12-16 14:36] LABS: URINE APPEARANCE CLEAR; URINE BILIRUBIN NEGATIVE (NEGATIVE); URINE BLOOD MODERATE (NEGATIVE); URINE COLOR YELLOW; URINE GLUCOSE (UA) NEGATIVE (NEGATIVE); URINE KETONE 15 mg/dL (NEGATIVE); URINE LEUKOCYTE ESTERASE SMALL (NEGATIVE); URINE NITRITE NEGATIVE (NEGATIVE); URINE PROTEIN TRACE (NEGATIVE); URINE UROBILINOGEN 0.2 E.U./dL (0.20 - 1.00)
[2017-12-16 14:55] LABS: URINE BACTERIA NONE SEEN; URINE EPITHELIAL CELLS 0 - 2 (FEW)
[2017-12-16 15:07] LABS: CRYPTOSPORIDIUM PARVUM ANTIGEN NOT DETECTED (NOT DETECT); GIARDIA LAMBLIA ANTIGEN NOT DETECTED (NOT DETECT); ROTOVIRUS NOT DETECTED (NOT DETECT)
[2017-12-16 15:59] LABS: MOLECULAR C DIFF TOXIN SCREEN DETECTED (NOT DETECT)
[2017-12-16] MEDS ORDERED: VANCOMYCIN HCL 1,000 MG in 0.9 % SODIUM CHLORIDE 250ML 250 ML IVPB ONE (16:25)
--- NOTE | 2017-12-16 18:00 | Emergency Department Record ---
History of Present Illness - General Chief complaint: Nausea, Vomiting, Diarrhea Stated complaint: DIARRHEA 3 WEEKS Time Seen by Provider: 12/16/17 13:43 Source: Patient Mode of Arrival: Wheelchair Limitations: No limitations - History of Present Illness Initial comments: pt has had intractable diarrhea for 3 wks and then started vomiting today. she has been dehydrated and is very weak. she also states she has ap and her belly is distended MD complaint: Abdominal pain, Diarrhea, Nausea, Vomiting Onset/Timin -: Week(s) Description of Vomiting: Watery Description of Diarrhea: Water Associated Abdominal Pain: Yes Location: Diffuse Severity scale (1-10): 10 Quality: Sharp Consistency: Constant Improves with: None Worsens with: None Associated Symptoms: Loss of appetite, Nausea/vomiting, Weakness - Related Data Previous Rx's Medication Instructions Recorded Albuterol Sulfate [Ventolin Hfa] 2 puff INH RESP.Q4H.WA #1 inhaler 11/03/17 Allergies Allergy/AdvReac Type Severity Reaction Status Date / Time No Known Drug Allergies Allergy Unverified 10/30/17 18:29 Travel Screening - Travel/Exposure Within Last 30 Days Have you traveled within the last 30 days?: No Review of Systems Reviewed: No additional complaints except as noted below Constitutional: Reports: As per HPI, Weakness. Denies: Chills, Fever, Malaise, Night sweats, Weight change Eyes: Reports: As per HPI. Denies: Eye discharge, Eye pain, Photophobia, Vision change ENT: Reports: As per HPI. Denies: Congestion, Dental pain, Ear pain, Epistaxis , Hearing loss, Throat pain Respiratory: Reports: As per HPI. Denies: Cough, Dyspnea, Hemoptysis, Stridor, Wheezes Cardiovascular: Reports: As per HPI. Denies: Arrhythmia, Chest pain, Dyspnea on exertion, Edema, Murmurs, Orthopnea, Palpitations, Paroxysmal nocturnal dyspnea, Rheumatic Fever, Syncope Endocrine: Reports: As per HPI. Denies: Fatigue, Heat or cold intolerance, Polydipsia, Polyuria Gastrointestinal: Reports: As per HPI, Abdominal pain, Diarrhea, Nausea, Vomiting. Denies: Constipation, Hematemesis, Hematochezia, Melena Genitourinary: Reports: As per HPI. Denies: Abnormal menses, Discharge, Dyspareunia, Dysuria, Frequency, Hematuria, Incontinence, Retention, Urgency Musculoskeletal: Reports: As per HPI. Denies: Arthralgia, Back pain, Gout, Joint swelling, Myalgia, Neck pain Skin: Reports: As per HPI. Denies: Bruising, Change in color, Change in hair/ nails, Lesions, Pruritus, Rash Neurological: Reports: As per HPI. Denies: Abnormal gait, Confusion, Headache, Numbness, Paresthesias, Seizure, Tingling, Tremors, Vertigo, Weakness Psychiatric: Reports: As per HPI. Denies: Anxiety, Auditory hallucinations, Depression, Homicidal thoughts, Suicidal thoughts, Visual hallucinations Hematological/Lymphatic: Reports: As per HPI. Denies: Anemia, Blood Clots, Easy bleeding, Easy bruising, Swollen glands Past Medical History - SOCIAL HISTORY Smoking Status: Never smoker Alcohol Use: None Drug Use: None - RESPIRATORY Hx Respiratory Disorders: No Comment:: allergies - CARDIOVASCULAR Hx Hypertension: Yes Comment:: lower extremity edema - NEURO Hx Neuro Disorders: Yes Comment:: has a recurring tic - GI Hx GI Disorders: Yes Hx Reflux: Yes Hx Wt Loss/Wt Gain: Yes (5 pounds recently) - Comment:: urge incontinence especially after Bumex taken - ENDOCRINE Hx Endocrine Disorders: No - PSYCH Hx Anxiety: Yes Hx Depression: Yes - HEMATOLOGY/ONCOLOGY Hx Anemia: Yes (current hgb 9.5/hct 30.9; takes Iron) Family Medical History Any Significant Family History?: No Physical Exam - General General Appearance: Alert, Oriented x3, Cooperative, Mild distress - Head Head exam: Normal inspection - Eye Eye exam: Normal appearance, PERRL, EOMI Pupils: Normal accommodation - ENT ENT exam: Normal exam, Mucous membranes dry, Normal external ear exam, Normal orophraynx Ear exam: Normal external inspection. negative: External canal tenderness Nasal Exam: Normal inspection. negative: Discharge, Sinus tenderness Mouth exam: Normal external inspection, Tongue normal Teeth exam: Normal inspection. negative: Dental caries Throat exam: Normal inspection. negative: Tonsillar erythema, Tonsillar exudate - Neck Neck exam: Normal inspection, Full ROM. negative: Tenderness - Respiratory Respiratory exam: Normal lung sounds bilaterally. negative: Respiratory distress - Cardiovascular Cardiovascular Exam: Regular rate, Normal rhythm, Normal heart sounds - GI/Abdominal GI/Abdominal exam: Soft, Normal bowel sounds, Tenderness - Rectal Rectal exam: Deferred - exam: Deferred - Extremities Extremities exam: Normal inspection, Full ROM, Normal capillary refill. negative: Tenderness - Back Back exam: Reports: Normal inspection, Full ROM. Denies: Muscle spasm, Rash noted, Tenderness - Neurological Neurological exam: Alert, CN II-XII intact, Normal gait, Oriented X3 - Psychiatric Psychiatric exam: Normal affect, Normal mood - Skin Skin exam: Dry, Intact, Normal color, Warm Course Vital Signs 12/16/17 12/16/17 12/16/17 13:26 15:17 17:11 Temperature 98.0 F Pulse Rate 61 Pulse Rate [ 87 126 H Pulse Ox Probe] Respiratory 18 18 20 Rate Blood Pressure 141/98 Blood Pressure 144/79 141/100 [Right Arm] Pulse Ox 97 95 97 - Reevaluation(s) Reevaluation #1: 12/16/17 17:59 pt had a bout of diarrhea approx every 30 minutes or less Medical Decision Making - Lab Data Result diagrams: 12/16/17 13:20 12/16/17 13:20 Lab Results 12/16/17 12/16/17 12/16/17 Range/Units 13:20 13:20 13:55 WBC 11.0 (4.2-12.2) K/uL RBC 4.55 (3.80-5.40) M/uL Hgb 12.9 (11.6-16.0) gm/dl Hct 40.3 (35.0-47.0) % MCV 88.6 (81-97) fl MCH 28.4 (27-33) pg MCHC 32.0 (32-36) g/dl RDW 13.0 (11.5-14.5) % Plt Count 259 (130-400) K/uL MPV 12.0 H (7.4-10.4) fl Neutrophils % 87.0 H (47-80) % Band Neutrophils % 0.0 (0-5) % Lymphocytes % 7.1 L (16-45) % Monocytes % 4.4 (0-9) % Eosinophils % 0.1 (0-6) % Basophils % 0.5 (0-6) % Lymphocytes 7.0 L (16-45) % Monocytes 6.0 (0-9) % Basophils 0.0 (0-6) % Eosinophil Count 0.0 (0-6) % Sodium 146 H (136-145) mmol/L Potassium 4.0 (3.4-4.5) mmol/L Chloride 100 (98-107) mmol/L Carbon Dioxide 25.0 (22-29) mmol/L Anion Gap 21.0 H (7-16) BUN 8 (8-23) mg/dL Creatinine 0.6 (0.5-0.9) mg/dL Estimated GFR > 60 mL/min Random Glucose 134 H (74-109) mg/dL Calcium 10.0 (8.8-10.2) mg/dL Total Bilirubin 0.50 (0.2-1.0) mg/dL AST 23 (10.0-35.0) U/L ALT 14 (<33) U/L Alkaline Phosphatase 141 H (35-104) U/L Total Protein 7.8 (6.6-8.7) g/dL Albumin 4.8 (4.0-5.0) g/dL Globulin 3.0 (1.4-4.8) gm/dL Albumin/Globulin Ratio 1.6 (1.1-1.8) Lipase 7 L (13-60) U/L Urine Color Yellow Urine Appearance Clear Urine pH 6.0 (5.0-8.0) Ur Specific [place] 1.015 (1.002-1.030) Urine Protein Trace H (NEGATIVE) Urine Glucose (UA) Negative (NEGATIVE) Urine Ketones 15 mg/dl H (NEGATIVE) Urine Blood Moderate (NEGATIVE) Urine Nitrite Negative (NEGATIVE) Urine Bilirubin Negative (NEGATIVE) Urine Urobilinogen 0.2 (0.20 - 1.00) E.U./dL Ur Leukocyte Esterase Small H (NEGATIVE) Urine RBC 3 - 6 (NONE SEEN) Urine WBC 3 - 5 (0-2/hpf) Ur Epithelial Cells 0 - 2 (FEW) Urine Bacteria None seen Stool Occult Blood (NEGATIVE) Stool for White Cells (NO WBC'S) Rotavirus Antigen (NOT DETECT) C. difficile Ag & Toxin (NOT DETECT) Cryptosporid parvum Ag (NOT DETECT) Giardia lamblia Ag (NOT DETECT) 12/16/17 12/16/17 12/16/17 Range/Units 14:28 14:28 14:38 WBC (4.2-12.2) K/uL RBC (3.80-5.40) M/uL Hgb (11.6-16.0) gm/dl Hct (35.0-47.0) % MCV (81-97) fl MCH (27-33) pg MCHC (32-36) g/dl RDW (11.5-14.5) % Plt Count (130-400) K/uL MPV (7.4-10.4) fl Neutrophils % (47-80) % Band Neutrophils % (0-5) % Lymphocytes % (16-45) % Monocytes % (0-9) % Eosinophils % (0-6) % Basophils % (0-6) % Lymphocytes (16-45) % Monocytes (0-9) % Basophils (0-6) % Eosinophil Count (0-6) % Sodium (136-145) mmol/L Potassium (3.4-4.5) mmol/L Chloride (98-107) mmol/L Carbon Dioxide (22-29) mmol/L Anion Gap (7-16) BUN (8-23) mg/dL Creatinine (0.5-0.9) mg/dL Estimated GFR mL/min Random Glucose (74-109) mg/dL Calcium (8.8-10.2) mg/dL Total Bilirubin (0.2-1.0) mg/dL AST (10.0-35.0) U/L ALT (<33) U/L Alkaline Phosphatase (35-104) U/L Total Protein (6.6-8.7) g/dL Albumin (4.0-5.0) g/dL Globulin (1.4-4.8) gm/dL Albumin/Globulin Ratio (1.1-1.8) Lipase (13-60) U/L Urine Color Urine Appearance Urine pH (5.0-8.0) Ur Specific [place] (1.002-1.030) Urine Protein (NEGATIVE) Urine Glucose (UA) (NEGATIVE) Urine Ketones (NEGATIVE) Urine Blood (NEGATIVE) Urine Nitrite (NEGATIVE) Urine Bilirubin (NEGATIVE) Urine Urobilinogen (0.20 - 1.00) E.U./dL Ur Leukocyte Esterase (NEGATIVE) Urine RBC (NONE SEEN) Urine WBC (0-2/hpf) Ur Epithelial Cells (FEW) Urine Bacteria Stool Occult Blood Negative (NEGATIVE) Stool for White Cells No wbc's observed (NO WBC'S) Rotavirus Antigen Not detected (NOT DETECT) C. difficile Ag & Toxin Detected H (NOT DETECT) Cryptosporid parvum Ag Not detected (NOT DETECT) Giardia lamblia Ag Not detected (NOT DETECT) Disposition Disposition: Admit Clinical Impression: C. difficile diarrhea, Dehydration Vomiting Qualifiers: Vomiting type: unspecified Vomiting Intractability: intractable Nausea presence : with nausea Qualified Code(s): R11.2 - Nausea with vomiting, unspecified Disposition: Still a Patient at [facility] Decision to Admit: Admit from ER Decision to Admit Date: 12/16/17 Decision to Admit Time: 18:02 Quality - Quality Measures Quality Measures: N/A - Blood Pressure Screening Does Patient Have Any of the Following: No Blood Pressure Classification: Hypertensive Reading Systolic Measurement: 141 Diastolic Measurement: 98 Screening for High Blood Pressure: < First Hypertensive BP, F/U Documented > [ [id number]] First Hypertensive Follow-up Interventions: Follow-up with rescreen GT 1 day and LT 4 weeks.
[2017-12-16] MEDS ORDERED: HYDROCODONE/APAP 10/325 TABLET PO ONE (18:33)
[2017-12-16] MEDS ORDERED: TEMAZEPAM 15 MG CAPSULE PO PRN (19:14)
[2017-12-16] MEDS ORDERED: ACETAMINOPHEN 500 MG TABLET PO PRN (19:14)
[2017-12-16] MEDS ORDERED: 0.9 % SODIUM CHLORIDE 1000ML 1,000 ML IV PRN (19:14)
[2017-12-16] MEDS ORDERED: ONDANSETRON HCL IV 4 MG/2 ML VIAL IVP PRN (19:14)
[2017-12-16] MEDS ORDERED: TRAMADOL HCL 50 MG TABLET PO PRN (19:14)
[2017-12-16] MEDS: ALBUTEROL HFA 8 GM INHALER INH SCH (22:06)
[2017-12-16] MEDS: CLONAZEPAM 1MG TABLET PO SCH (22:52)
[2017-12-16] MEDS: FERROUS SULFATE 325 MG TAB PO SCH (22:52)
[2017-12-16] MEDS: ATORVASTATIN 20 MG TABLET PO SCH (22:52)
[2017-12-16] MEDS: GABAPENTIN 100 MG CAPSULE PO SCH (22:52)
[2017-12-17] MEDS: ALBUTEROL HFA 8 GM INHALER INH SCH (05:57)
[2017-12-17] MEDS: PANTOPRAZOLE SODIUM 40 MG TABLET PO SCH ×2 (06:59→14:17)
--- NOTE | 2017-12-17 07:41 | CT SCAN REPORT ---
EXAM: CT OF THE ABDOMEN AND PELVIS WITHOUT IV CONTRAST HISTORY: ABDOMINAL PAIN. TECHNIQUE: Helical CT scan of the abdomen and pelvis was obtained without intravenous contrast. The patient received oral contrast. Comparison: None. FINDINGS: The lung bases show a linear band of scar or subsegmental atelectasis in the posterior right middle lobe. Small hiatal hernia. Limited evaluation of the solid organs without intravenous contrast. The liver has a normal size. The spleen, pancreas, and adrenal glands are unremarkable. No calcified gallstones. No pericholecystic fluid. No renal calculi or hydronephrosis. No ureteral calculi. The bowel shows post surgical changes of left hemicolectomy. There is mild wall thickening of the remaining colon, particularly the cecum with wall thickness of 5 mm. The retrocecal appendix has a normal size, 5 mm, without periappendiceal inflammatory change. The small bowel has normal caliber. No abdominal aortic aneurysm. Small periaortic nodes measure up to 5 mm in short axis, likely reactive. Small fat containing right inguinal hernia. The bony structures show moderate scoliosis and severe degenerative changes of the spine. The L2 and L3 vertebral bodies are fused. IMPRESSION: 1. POST SURGICAL CHANGES OF LEFT HEMICOLECTOMY. THERE IS MILD WALL THICKENING OF THE REMAINING COLON, PARTICULARLY THE CECUM AND ASCENDING COLON. INFECTIOUS AND/OR INFLAMMATORY COLITIS SHOULD BE CONSIDERED. THE APPENDIX IS NORMAL. 2. SMALL HIATAL HERNIA. JOB NUMBER: [id number] MTDD
--- NOTE | 2017-12-17 08:03 | History & Physical ---
History of Present Illness - Date of Service Date of Service for History & Physical: 12/17/17 - History of Present Illness Admitting Diagnosis: c-diff intactable diarrhea and vomiting, dehydration History of Present Illness: Mrs. Raymundo is a 77 y/o female who reports nausea/vomiting for 3 days and diarrhea for a much longer but she is unable to say for how long. The patient denies recent hospitalizations, use of antibiotics or change in medications. She also notes feeling lightheaded, dizzy and weak. The patient reportedly had four loose bowel movements overnight and had some abdominal pain which has since resolved. The patient has been started on Vancomycin 125mg Q6H and iv fluids. She appears to be hemodynamically stable and is able to tolerate a clear liquid diet this morning. She is a poor historian so it is somewhat difficult to understand all of her acute concerns. PCP: Dr. Aviles Travel Screening - Travel/Exposure Within Last 30 Days Have you traveled within the last 30 days?: No - Travel/Exposure Within Last Year Have you traveled outside the [place] in the last year?: No - Additonal Travel Details Have you been exposed to anyone with a communicable illness?: No - Travel Symptoms Symptom Screening: None Review of Systems Constitutional: Reports: As per HPI, Weakness. Denies: Chills, Fever, Malaise, Night sweats, Weight change Eyes: Reports: As per HPI. Denies: Eye discharge, Eye pain, Photophobia, Vision change ENT: Reports: As per HPI. Denies: Congestion, Dental pain, Ear pain, Epistaxis , Hearing loss, Throat pain Respiratory: Reports: As per HPI. Denies: Cough, Dyspnea, Hemoptysis, Stridor, Wheezes Cardiovascular: Reports: As per HPI. Denies: Arrhythmia, Chest pain, Dyspnea on exertion, Edema, Murmurs, Orthopnea, Palpitations, Paroxysmal nocturnal dyspnea, Rheumatic Fever, Syncope Endocrine: Reports: As per HPI. Denies: Fatigue, Heat or cold intolerance, Polydipsia, Polyuria Gastrointestinal: Reports: As per HPI, Abdominal pain, Diarrhea, Nausea, Vomiting. Denies: Constipation, Hematemesis, Hematochezia, Melena Genitourinary: Reports: As per HPI. Denies: Abnormal menses, Discharge, Dyspareunia, Dysuria, Frequency, Hematuria, Incontinence, Retention, Urgency Musculoskeletal: Reports: As per HPI. Denies: Arthralgia, Back pain, Gout, Joint swelling, Myalgia, Neck pain Skin: Reports: As per HPI. Denies: Bruising, Change in color, Change in hair/ nails, Lesions, Pruritus, Rash Neurological: Reports: As per HPI. Denies: Abnormal gait, Confusion, Headache, Numbness, Paresthesias, Seizure, Tingling, Tremors, Vertigo, Weakness Psychiatric: Reports: As per HPI. Denies: Anxiety, Auditory hallucinations, Depression, Homicidal thoughts, Suicidal thoughts, Visual hallucinations Hematological/Lymphatic: Reports: As per HPI. Denies: Anemia, Blood Clots, Easy bleeding, Easy bruising, Swollen glands Past Medical History - SOCIAL HISTORY Smoking Status: Never smoker Alcohol Use: None Drug Use: None - RESPIRATORY Hx Respiratory Disorders: No - CARDIOVASCULAR Hx Hypertension: Yes Comment:: lower extremity edema - NEURO Hx Neuro Disorders: Yes Comment:: touretts - GI Hx GI Disorders: Yes Hx Reflux: Yes - Hx Genitourinary Disorders: No - ENDOCRINE Hx Endocrine Disorders: No - PSYCH Hx Anxiety: Yes Hx Depression: Yes - HEMATOLOGY/ONCOLOGY Hx Anemia: Yes Family Medical History Any Significant Family History?: Yes Hx Anxiety: Children H&P Meds/Allergies - Allergies Allergies: Allergies Allergy/AdvReac Type Severity Reaction Status Date / Time No Known Drug Allergies Allergy Unverified 10/30/17 18:29 - Home Medications Previous Rx's Medication Instructions Recorded Albuterol Sulfate [Ventolin Hfa] 2 puff INH RESP.Q4H.[place] #1 inhaler 11/03/17 - Active Medications Active Medications: Current Medications Acetaminophen (Tylenol 500mg Tab) 1,000 mg PO Q6H PRN PRN Reason: PAIN/TEMP Hydrocodone Bitart/Acetaminophen ([place] 10mg/325mg) 1 each PO Q4HR PRN PRN Reason: Pain - General Albuterol Sulfate (Ventolin Hfa) 2 puff INH RESP.Q4H.[facility] Last Admin: 12/17/17 05:57 Dose: Not Given Aspirin (Aspirin Chewable) 81 mg PO DAILY [facility] Atorvastatin Calcium (Lipitor) 10 mg PO QHS [facility] Last Admin: 12/16/17 22:52 Dose: Not Given Bumetanide (Bumex) 1 mg PO DAILY [facility] Clonazepam (Klonopin) 2 mg PO QHS [facility] Last Admin: 12/16/17 22:52 Dose: Not Given Duloxetine HCl (Cymbalta) 60 mg PO DAILY [facility] Ferrous Sulfate (Iron) 325 mg PO BID [facility] Last Admin: 12/16/17 22:52 Dose: Not Given Gabapentin (Neurontin) 400 mg PO TID [facility] Last Admin: 12/16/17 22:52 Dose: Not Given Sodium Chloride () 1,000 mls @ 125 mls/hr IV .Q8H PRN PRN Reason: LARGE VOLUME IV Last Admin: 12/16/17 20:40 Dose: 125 mls/hr Lisinopril (Zestril) 10 mg PO DAILY [facility] Loratadine (Claritin) 10 mg PO DAILY [facility] Magnesium Oxide (Mag Ox) 200 mg PO DAILY [facility] Non-Formulary Medication (Celecoxib [Celecoxib]) 200 mg PO BID [facility] Non-Formulary Medication (Diclofenac Sodium [Diclofenac Sodium]) 100 gm TP [facility] Ondansetron HCl (Zofran) 4 mg IVP Q4H PRN PRN Reason: NAUSEA Last Admin: 12/16/17 20:35 Dose: 4 mg Pantoprazole Sodium (Protonix) 40 mg PO BIDAC [facility] Last Admin: 12/17/17 06:59 Dose: 40 mg Potassium Chloride (Klor-Con) 10 meq PO DAILY [facility] Temazepam (Restoril) 15 mg PO QHS PRN PRN Reason: INSOMNIA Tramadol HCl (Ultram) 50 mg PO Q4H PRN PRN Reason: Pain - General Physical Exam - Vital Signs Vital Signs: Vital Signs - Last 24 Hrs Temp Pulse Pulse Resp BP BP Pulse Ox 12/17/17 07:41 98.8 F 67 18 142/80 96 12/16/17 22:00 97.5 F L 63 18 152/72 94 L 12/16/17 18:56 98.2 F 61 18 160/84 97 12/16/17 18:06 92 H 20 138/86 96 12/16/17 17:11 126 H 20 141/100 97 12/16/17 15:17 87 18 144/79 95 12/16/17 13:26 98.0 F 61 18 141/98 97 - General General Appearance: Alert, Oriented x3, Cooperative, Mild distress Limitations: No limitations - Head Head exam: Normal inspection - Eye Eye exam: Normal appearance, PERRL, EOMI Pupils: Normal accommodation - ENT ENT exam: Normal exam, Mucous membranes dry, Normal external ear exam, Normal orophraynx Ear exam: Normal external inspection. negative: External canal tenderness Nasal Exam: Normal inspection. negative: Discharge, Sinus tenderness Mouth exam: Normal external inspection, Tongue normal Teeth exam: Normal inspection. negative: Dental caries Throat exam: Normal inspection. negative: Tonsillar erythema, Tonsillar exudate - Neck Neck exam: Normal inspection, Full ROM. negative: Tenderness - Respiratory Respiratory exam: Normal lung sounds bilaterally. negative: Respiratory distress - Cardiovascular Cardiovascular Exam: Regular rate, Normal rhythm, Normal heart sounds Peripheral Pulses: 3+: Radial (R), Radial (L), Dorsalis Pedis (R), Dorsalis Pedis (L) - GI/Abdominal GI/Abdominal exam: Soft, Normal bowel sounds, Tenderness - Rectal Rectal exam: Deferred - exam: Deferred - Extremities Extremities exam: Normal inspection, Full ROM, Normal capillary refill. negative: Tenderness - Back Back exam: Reports: Normal inspection, Full ROM. Denies: Muscle spasm, Rash noted, Tenderness - Neurological Neurological exam: Alert, CN II-XII intact, Normal gait, Oriented X3 - Psychiatric Psychiatric exam: Normal affect, Normal mood - Skin Skin exam: Dry, Intact, Normal color, Warm Results - Labs Result Diagrams: 12/16/17 13:20 12/16/17 13:20 Labs Last 24 Hours: Laboratory Results - last 24 hr 12/16/17 12/16/17 12/16/17 13:20 13:20 13:55 WBC 11.0 RBC 4.55 Hgb 12.9 Hct 40.3 MCV 88.6 MCH 28.4 MCHC 32.0 RDW 13.0 Plt Count 259 MPV 12.0 H Neutrophils % 87.0 H Band Neutrophils % 0.0 Lymphocytes % 7.1 L Monocytes % 4.4 Eosinophils % 0.1 Basophils % 0.5 Lymphocytes 7.0 L Monocytes 6.0 Basophils 0.0 Eosinophil Count 0.0 Sodium 146 H Potassium 4.0 Chloride 100 Carbon Dioxide 25.0 Anion Gap 21.0 H BUN 8 Creatinine 0.6 Estimated GFR > 60 Random Glucose 134 H Calcium 10.0 Total Bilirubin 0.50 AST 23 ALT 14 Alkaline Phosphatase 141 H Total Protein 7.8 Albumin 4.8 Globulin 3.0 Albumin/Globulin Ratio 1.6 Lipase 7 L Urine Color Yellow Urine Appearance Clear Urine pH 6.0 Ur Specific [place] 1.015 Urine Protein Trace H Urine Glucose (UA) Negative Urine Ketones 15 mg/dl H Urine Blood Moderate Urine Nitrite Negative Urine Bilirubin Negative Urine Urobilinogen 0.2 Ur Leukocyte Esterase Small H Urine RBC 3 - 6 Urine WBC 3 - 5 Ur Epithelial Cells 0 - 2 Urine Bacteria None seen Stool Occult Blood Stool for White Cells Rotavirus Antigen C. difficile Ag & Toxin Cryptosporid parvum Ag Giardia lamblia Ag 12/16/17 12/16/17 12/16/17 14:28 14:28 14:38 WBC RBC Hgb Hct MCV MCH MCHC RDW Plt Count MPV Neutrophils % Band Neutrophils % Lymphocytes % Monocytes % Eosinophils % Basophils % Lymphocytes Monocytes Basophils Eosinophil Count Sodium Potassium Chloride Carbon Dioxide Anion Gap BUN Creatinine Estimated GFR Random Glucose Calcium Total Bilirubin AST ALT Alkaline Phosphatase Total Protein Albumin Globulin Albumin/Globulin Ratio Lipase Urine Color Urine Appearance Urine pH Ur Specific [place] Urine Protein Urine Glucose (UA) Urine Ketones Urine Blood Urine Nitrite Urine Bilirubin Urine Urobilinogen Ur Leukocyte Esterase Urine RBC Urine WBC Ur Epithelial Cells Urine Bacteria Stool Occult Blood Negative Stool for White Cells No wbc's observed Rotavirus Antigen Not detected C. difficile Ag & Toxin Detected H Cryptosporid parvum Ag Not detected Giardia lamblia Ag Not detected VTE H&P Assessment - Risk for VTE Risk for VTE: Yes Risk Level: Moderate Risk Assessment Date: 12/17/17 Risk Assessment Time: 10:18 VTE Orders Placed or Will Be Placed: Yes Plan - Inpatient Certification Inpatient Certification: Admit to inpatient care: Based on my medical assessment, after consideration of patient's risk factors (age, co-morbidities and patient presenting symptoms and acuity), I expect that this patient will remain in the hospital greater than or equal to two midnights and that the services needed warrant inpatient care because: Patient Risk Factors: [] Estimated length of stay: [] The patient may reasonably be expected to be discharged or transferred to a hospital within 96 hours after admission to [facility]. Services needed: [] Post hospital care (if known): [] I certify that my determination is in accordance with my understanding of Medicare requirements for reasonable and necessary inpatient services. - Detailed Diagnosis and Plan (1) C. difficile diarrhea Current Visit: Yes Status: Acute Base Code: A04.72 - ENTEROCOLITIS D/T CLOSTRIDIUM DIFFICILE, NOT SPCF RECUR Comment: 12/17/17 - multiple bowel movements over the past several days. Stool studies - C. diff + - ct abdomen: post surgical changes of hemicoletomy, mild bowel wall thickening. - vancomycin 125mg Q6H, discontinue Mg oxide. - ivf: 0.9% Nacl @ 125mL/hr, Zofran 4mg Q4H PRN - on clear liquids, advance diet as tolerated. Contact precuations orders. (2) Anxiety and depression Current Visit: Yes Status: Acute Base Code: F41.9 - ANXIETY DISORDER, UNSPECIFIED; F32.9 - MAJOR DEPRESSIVE DISORDER, SINGLE EPISODE, UNSPECIFIED Comment: 12/17/17 - resume cymbalta Klonipin. (3) Generalized weakness Current Visit: No Status: Acute Base Code: R53.1 - WEAKNESS Comment: 12/17/17 - generalized weakness likely due to ongoing diarrhea causing dehydration. - will continue with Nacl @ 125mL/hr. - fall precuations w/ bed alarm, ambulate with assist. (4) Tourettes disease Current Visit: Yes Status: Acute Base Code: F95.2 - TOURETTE'S DISORDER Comment: 12/17/17 - resume home medications. (5) Chronic pain Current Visit: Yes Status: Acute Base Code: G89.29 - OTHER CHRONIC PAIN Comment: 12/17/17 - spinal scoliosis and bilateral knee pain. - on [place] 10mg, Ultram, Tylenol, Neurontin and Celebrex. (6) Full code status Current Visit: No Status: Acute Base Code: Z78.9 - OTHER SPECIFIED HEALTH STATUS Comment: 12/17/17 - FULL CODE - Disposition The patient's symptoms have improved and she says that she has not had as many bowel movements. We will monitor overnight and d/c tomorrow if she has sustained improvement.
[2017-12-17] MEDS: ONDANSETRON 4 MG ODT TABLET SL PRN (09:29)
[2017-12-17] MEDS ORDERED: ASPIRIN 81 MG CHEWABLE TABLET PO SCH (10:00)
[2017-12-17] MEDS ORDERED: LORATADINE 10 MG TABLET PO SCH (10:00)
[2017-12-17] MEDS ORDERED: LISINOPRIL 10 MG TABLET PO SCH (10:00)
[2017-12-17] MEDS ORDERED: CELECOXIB 100 MG CAPSULE PO SCH (10:00)
[2017-12-17] MEDS ORDERED: BUMETANIDE 1 MG TABLET PO SCH (10:00)
[2017-12-17] MEDS ORDERED: POTASSIUM CHLORIDE 10 MEQ TAB PO SCH (10:00)
[2017-12-17] MEDS ORDERED: DULOXETINE HCL 30 MG CAPSULE.DR PO SCH (10:00)
[2017-12-17] MEDS ORDERED: MAGNESIUM OXIDE 400 MG TABLET PO SCH (10:00)
[2017-12-17] MEDS: DICLOFENAC SODIUM 100 GM TP SCH ×2 (11:14→22:16)
[2017-12-17] MEDS: GABAPENTIN 100 MG CAPSULE PO SCH ×2 (11:15→18:55)
[2017-12-17] MEDS: VANCOMYCIN HCL 1 GM VIAL PO SCH ×2 (12:17→18:54)
[2017-12-17] MEDS: HYDROCODONE/APAP 10/325 TABLET PO PRN ×2 (15:56→22:20)
--- NOTE | 2017-12-17 17:00 | Discharge Summary ---
Providers Discharge Summary Date: 12/18/17 Date of admission: 12/16/17 18:51 Attending physician: LAY DOUGHERTY Primary care physician: FLORINA BROWN D.O. Physical Exam - Vital Signs Vital Signs: Vital Signs - Last 24 Hrs Temp Pulse Resp BP BP Pulse Ox 12/17/17 11:00 98.1 F 74 18 142/87 93 L 12/17/17 07:41 98.8 F 67 18 142/80 96 12/16/17 22:00 97.5 F L 63 18 152/72 94 L 12/16/17 18:56 98.2 F 61 18 160/84 97 12/16/17 18:06 92 H 20 138/86 96 12/16/17 17:11 126 H 20 141/100 97 - General General Appearance: Alert, Oriented x3, Cooperative, Mild distress Limitations: No limitations - Head Head exam: Normal inspection - Eye Eye exam: Normal appearance, PERRL, EOMI Pupils: Normal accommodation - ENT ENT exam: Normal exam, Mucous membranes dry, Normal external ear exam, Normal orophraynx Ear exam: Normal external inspection. negative: External canal tenderness Nasal Exam: Normal inspection. negative: Discharge, Sinus tenderness Mouth exam: Normal external inspection, Tongue normal Teeth exam: Normal inspection. negative: Dental caries Throat exam: Normal inspection. negative: Tonsillar erythema, Tonsillar exudate - Neck Neck exam: Normal inspection, Full ROM. negative: Tenderness - Respiratory Respiratory exam: Normal lung sounds bilaterally. negative: Respiratory distress - Cardiovascular Cardiovascular Exam: Regular rate, Normal rhythm, Normal heart sounds Peripheral Pulses: 3+: Radial (R), Radial (L), Dorsalis Pedis (R), Dorsalis Pedis (L) - GI/Abdominal GI/Abdominal exam: Soft, Normal bowel sounds, Tenderness - Rectal Rectal exam: Deferred - exam: Deferred - Extremities Extremities exam: Normal inspection, Full ROM, Normal capillary refill. negative: Tenderness - Back Back exam: Reports: Normal inspection, Full ROM. Denies: Muscle spasm, Rash noted, Tenderness - Neurological Neurological exam: Alert, CN II-XII intact, Normal gait, Oriented X3 - Psychiatric Psychiatric exam: Normal affect, Normal mood - Skin Skin exam: Dry, Intact, Normal color, Warm Hospitalization - Hospitalization Admission Diagnosis: c-diff intactable diarrhea and vomiting, dehydration - Problem List/Discharge Diagnosis (1) C. difficile diarrhea Current Visit: Yes Status: Acute Base Code: A04.72 - ENTEROCOLITIS D/T CLOSTRIDIUM DIFFICILE, NOT SPCF RECUR Comment: 12/18/17 - multiple bowel movements over the past several days. Stool studies - C. diff + - ct abdomen: post surgical changes of hemicoletomy, mild bowel wall thickening. - vancomycin 125mg Q6H, discontinue Mg oxide. - ivf: 0.9% Nacl @ 125mL/hr, Zofran 4mg Q4H PRN - on clear liquids, advance diet as tolerated. Contact precuations orders. (2) Anxiety and depression Current Visit: Yes Status: Acute Base Code: F41.9 - ANXIETY DISORDER, UNSPECIFIED; F32.9 - MAJOR DEPRESSIVE DISORDER, SINGLE EPISODE, UNSPECIFIED Comment: 12/18/17 - resume cymbalta, Klonipin. (3) Generalized weakness Current Visit: No Status: Acute Base Code: R53.1 - WEAKNESS Comment: 12/18/17 - generalized weakness likely due to ongoing diarrhea causing dehydration. - will continue with Nacl @ 125mL/hr. - fall precuations w/ bed alarm, ambulate with assist. (4) Tourettes disease Current Visit: Yes Status: Acute Base Code: F95.2 - TOURETTE'S DISORDER Comment: 12/18/17 - resume home medications. (5) Chronic pain Current Visit: Yes Status: Acute Base Code: G89.29 - OTHER CHRONIC PAIN Comment: 12/17/17 - spinal scoliosis and bilateral knee pain. - on Brandon 10mg, Ultram, Tylenol, Neurontin and Celebrex. (6) Full code status Current Visit: No Status: Acute Base Code: Z78.9 - OTHER SPECIFIED HEALTH STATUS Comment: 12/18/17 - FULL CODE (7) DVT prophylaxis Current Visit: No Status: Acute Base Code: PIB4851 - Comment: 12/17/17 -lovenox 40mg sq daily - Disposition The patient's symptoms have improved and she says that she has not had as many bowel movements. We will monitor overnight and d/c tomorrow if she has sustained improvement. - Hospitalization Course Hospital Course: Mrs. Raymundo is a 77 y/o female who reports nausea/vomiting for 3 days and diarrhea for a much longer but she is unable to say for how long. The patient denies recent hospitalizations, use of antibiotics or change in medications. She also notes feeling lightheaded, dizzy and weak. The patient reportedly had four loose bowel movements overnight and had some abdominal pain which has since resolved. The patient has been started on Vancomycin 125mg Q6H and iv fluids. She appears to be hemodynamically stable and is able to tolerate a clear liquid diet this morning. She is a poor historian so it is somewhat difficult to understand all of her acute concerns. 12/18/17: Over the past 24 hours the patient has had minimal bowel movements. Her appetite has been inconsistent and she has not eaten very much with the exception of soft foods. The patient is up and ambulatory with her walker but still appears to be very confused. PCP: Dr. Brown Procedures: Imaging and X-Rays 12/16/17 13:55 ABDOMEN/PELVIS WO CONTRAST [CT] Stat Abnormal Labs: Abnormal Lab Results 12/16/17 12/16/17 12/16/17 Range/Units 13:20 13:20 13:55 MPV 12.0 H (7.4-10.4) fl Neutrophils % 87.0 H (47-80) % Lymphocytes % 7.1 L (16-45) % Lymphocytes 7.0 L (16-45) % Sodium 146 H (136-145) mmol/L Anion Gap 21.0 H (7-16) Random Glucose 134 H (74-109) mg/dL Alkaline Phosphatase 141 H (35-104) U/L Lipase 7 L (13-60) U/L Urine Protein Trace H (NEGATIVE) Urine Ketones 15 mg/dl H (NEGATIVE) Ur Leukocyte Esterase Small H (NEGATIVE) C. difficile Ag & Toxin (NOT DETECT) 12/16/17 Range/Units 14:28 MPV (7.4-10.4) fl Neutrophils % (47-80) % Lymphocytes % (16-45) % Lymphocytes (16-45) % Sodium (136-145) mmol/L Anion Gap (7-16) Random Glucose (74-109) mg/dL Alkaline Phosphatase (35-104) U/L Lipase (13-60) U/L Urine Protein (NEGATIVE) Urine Ketones (NEGATIVE) Ur Leukocyte Esterase (NEGATIVE) C. difficile Ag & Toxin Detected H (NOT DETECT) Discharge Medications - Discharge Medications Prescriptions: Vancomycin HCl [Vancomycin] 125 mg PO Q6H 36 Days capsule Home Medications: Ambulatory Orders Ascorbic Acid [Vitamin C] 1,000 mg PO DAILY tab 10/30/17 [Last Taken 10/30/17 08:00 1000 MG] Aspirin 81 mg PO QD tab.chew 10/30/17 [Last Taken 10/29/17 20:00 81 MG] Atorvastatin Calcium 10 mg PO QHS tab 10/30/17 [Last Taken 10/29/17 20:00 10 MG ] Bumetanide [Bumex] 1 mg PO DAILY tab 10/30/17 [Last Taken 10/30/17 08:00 1 MG] Calcium Carbonate/Vitamin D3 [Calcium 500 + Vit D Caplet] 1 each PO DAILY tab 10/30/17 [Last Taken 10/30/17 08:00 500 MG/200 UNITS] Celecoxib 200 mg PO BID cap 10/30/17 [Last Taken 10/30/17 08:00 200 MG] Clonazepam 2 mg PO QHS tab.rapdis 10/30/17 [Last Taken 10/29/17 20:00] Diclofenac Sodium 100 gm TP BID 10/30/17 [Last Taken 10/30/17 08:00 100 GM] Duloxetine HCl 60 mg PO DAILY cap 10/30/17 [Last Taken 10/30/17 08:00 60 MG] Ferrous Sulfate 325 mg PO BID tab 10/30/17 [Last Taken 10/30/17 08:00 325 MG] Folic Acid 0.8 mg PO DAILY tab 10/30/17 [Last Taken 10/30/17 08:00] Gabapentin 400 mg PO TID cap 10/30/17 [Last Taken 10/30/17 14:00 400 MG] Hydrocodone/Acetaminophen [Hydrocodone-Acetamin 10-325 mg] 10 - 325 mg PO Q4HR PRN tab 10/30/17 [Last Taken 10/30/17 12:00 10-325] Hydrocortisone 1.5 gm TP BID PRN 10/30/17 [Last Taken 10/30/17 15:00 1.5] Lisinopril 10 mg PO DAILY tab 10/30/17 [Last Taken 10/30/17 08:00 10 MG] Loratadine 10 mg PO DAILY tab.rapdis 10/30/17 [Last Taken 10/30/17 08:00 10 MG] Pantoprazole Sodium [Protonix] 40 mg PO BIDAC tab. 10/30/17 [Last Taken 10/30 08:00 40 MG] Potassium Chloride [Klor-Con 10] 10 meq PO DAILY 10/30/17 [Last Taken 10/30/17 08:00] Tramadol HCl 50 mg PO Q4H PRN tab 10/30/17 [Last Taken 10/30/17 14:00 50 MG] Albuterol Sulfate [Ventolin Hfa] 2 puff INH RESP.Q4H.WA #1 inhaler 11/03/17 [ Last Taken Unknown] Celecoxib [Celebrex] 200 mg PO BID cap 12/17/17 [Last Taken Unknown] Vancomycin HCl [Vancomycin] 125 mg PO Q6H 36 Days capsule 12/17/17 [Last Taken Unknown] Discharge Plan - Discharge Instructions Diet at Discharge: Advance to Usual Diet Instructions: Vancomycin (By mouth), Clostridium Difficile Infection (DC), Clostridium Difficile Infection (GEN) Additional Instructions: -[facility] will contact you at home to start home health services. They can be reached at [phone]. -Please call [facility] Centralized Intake to complete a 20-minute phone screening to assess you for services: [phone]. -A referral has been made to [facility] so a Community Health Worker can meet with you at home to connect you with needed resources. -A referral has been made to [facility] [employer] [facility]-they will call you to start delivering meals. -A referral has been made to the [facility] to help you meet your care needs at home. Dr Dougherty: Vancomycin 125mg Q6H for another 8 days. Follow up with PCP: Dr. Brown for refills on other medications. Quality Measures - Quality Measures Quality Measures: Advance Directives, Documentation of Current Medications in Medical Record, Elder Maltreatment Screen and Follow-Up Plan, Screening for High Blood Pressure and F/U Documented - Current Medications Quality Measure: Measure #130: Documentation of Current Medications Documentation of Current Medications: <Current Medications Documented/Reviewed> [G8427] - Blood Pressure Screening Quality Measure: Screening for High Blood Pressure and Follow-Up Documented Does Patient Have Any of the Following: Active Dx of HTN Blood Pressure Classification: Pre-Hypertensive BP Reading Systolic Measurement: 142 Diastolic Measurement: 87 Screening for High Blood Pressure: Patient Exclusion, Hx of HTN [G9744] - Advance Directives Quality Measure: Measure #47: Care Plan Advance Directives Established: No Advance Directives Information Provided To Patient: Declined Advance Directives on File: No Living Will: No Power of Restaurant Service Manager: No Advance Care Planning: Not Discussed or Documented [[id number]] - Elder Abuse Suspicion Index Screening: Elder Abuse Suspicion Index Screening Rely on people for bathing, dressing, shopping, banking, etc: Yes Prevented from getting food, clothes, medication, etc: No Made to feel shamed or threatened by someone: No Forced to sign papers or use money against will: No Feel afraid, touched in ways not wanted or hurt physically: No Poor eye contact, withdrawn, malnourished, cuts or bruises: No Screening Result: Negative result EASI Reference Information: Cleve WHITMORE, Jeffrey C, Katelyn D, Sanjay Bright.Development and validation of a tool to assist physicians identification of elder abuse: The Elder Abuse Suspicion Index (EASI ). Journal of Elder Abuse and Neglect, 2008; 20 (3): 276-300. - Elder Maltreatment Screen Quality Measures: Elder Maltreatment Screen and Follow-Up Plan Elder Maltreatment Screen: <Negative, No Follow-Up Plan Required> [G8734]
[2017-12-17] MEDS: CLONAZEPAM 1MG TABLET PO SCH (22:16)
[2017-12-17] MEDS: ATORVASTATIN 20 MG TABLET PO SCH (22:17)
[2017-12-18] MEDS: VANCOMYCIN HCL 1 GM VIAL PO SCH ×3 (06:51→06:53)
[2017-12-18] MEDS: PANTOPRAZOLE SODIUM 40 MG TABLET PO SCH (06:57)
[2017-12-18] MEDS: ONDANSETRON 4 MG ODT TABLET SL PRN (09:48)
[2017-12-18] MEDS ORDERED: ENOXAPARIN 40 MG/0.4 ML SYR SQ SCH (10:00)
--- NOTE | 2017-12-18 11:08 | Physician Addendum ---
Addendum (Physician) 12/18/17 11:00 I have been made aware by nursing and social work that the patient's family is resistant to her being taken home. Since yesterday the patient has not had a significant amount of bowel movements and has been ambulatory with the use of her rolling walker. She was continued on oral antibiotics for treatment of her C diff which is the correct course of therapy for resolution. Additionally, the patient came with documented use of two laxatives which would certainly be contributing factors to her frequent loose stools in addition to the infection. I have given [facility] patient information pertaining to continued home care. I have explained all this to the son in-law who says that he feels that she is too weak to go home. Social work has been trying to assist them and has arranged home health care but still this is not to their satisfaction. If strength and weakness is the concern then physical therapy would e appropriate to assess which can be done through the already arranged home service. The medicine service is willing to assist the patient with transition to home or a facility if needed as these would appropriate for her level of care. We have Xuan Almazan with patient address the issue in an effort to resolve any concerns the patient or family may have.
[2017-12-18] MEDS: DICLOFENAC SODIUM 100 GM TP SCH (12:29)
[2017-12-18] MEDS: FERROUS SULFATE 325 MG TAB PO SCH (12:40)
== END 2017-12-18 14:50 ==
LOC: ER 12:40 → INTOOBSV 18:51 → MEDSURG 18:51
PROVIDERS: ADMIT Internal Medicine; ATTEND Internal Medicine
DX: A04.72 Enterocolitis due to Clostridium difficile, not specified as recurrent (principal); R11.2 Nausea with vomiting, unspecified; E86.0 Dehydration; R53.1 Weakness; I10 Essential (primary) hypertension; D64.9 Anemia, unspecified; K21.9 Gastro-esophageal reflux disease without esophagitis; F95.2 Tourette's disorder; G89.29 Other chronic pain; R60.0 Localized edema; F41.9 Anxiety disorder, unspecified
CPT/HCPCS: 83690; 87329; 80053; 81001; 89055; 87425; 87427; 82272; 87493; 85027; 74176; G0378 ×3; J2405; J3370 ×3; J3490 ×2; 96374; 96375; 99217; 99220; 99285; J7030; J7050